=== PATIENT | female | born 1990 | race American Indian/Alaskan Native ===

== ENCOUNTER 2021-07-30 07:51 | Day surgery (SDC) | payer MEDICAID ==
[~2021-07-30 07:51] MED LIST: ceFAZolin/Water 2 GM/20 ML 2 GM/20 ML SYRINGE IV NR
[2021-07-30] MEDS ORDERED: SODIUM CHLORIDE 0.9% 1000 ML 1,000 ML ONE (08:51)
[2021-07-30 09:14] LABS: Hematocrit 32.8 % (30.3-42.9); Hemoglobin 10.5 gm/dl (10.1-14.3); Mean Corpuscular HGB Conc 32 % (30-34); Mean Corpuscular Volume 84 fl (79-97); Platelet Count 222 K/mm3 (140-440); Red Cell Distribution Width 16.4 % (13.2-15.2)
[2021-07-30 09:26] LABS: Calcium 8.7 mg/dL (8.4-10.2)
[2021-07-30] MEDS ORDERED: ONDANSETRON 4 MG/2 ML INJ IV PRN (09:27)
[2021-07-30] MEDS ORDERED: HYDROmorphone 1 MG/1 ML INJ IV PRN ×2 (09:27)
--- NOTE | 2021-07-30 09:28 | Anesthesia Day of Surgery ---
Anesthesia Day of Surgery - Day of Surgery Patient Examined: Yes Patient H&P Reviewed: Yes Patient is NPO: Yes Beta Blockers: Yes
--- NOTE | 2021-07-30 09:30 | Anesthesia Consultation ---
Anesthesia Consult and Med Hx Date of service: 07/30/21 - Airway Anesthetic Teeth Evaluation: Good ROM Head & Neck: Adequate Mental/Hyoid Distance: Adequate Mallampati Class: Class III Intubation Access Assessment: Possibly Difficult - Pre-Operative Health Status ASA Pre-Surgery Classification: ASA3 Proposed Anesthetic Plan: General - Pulmonary Hx Smoking: No Hx Asthma: Yes (USES INHALER NEEDED) Hx Sleep Apnea: No - Cardiovascular System Hx Hypertension: Yes (CHF Mar 2019) Hx Coronary Artery Disease: No (Had heart cath last year-pt states it was ok) - Central Nervous System Hx Psychiatric Problems: No - Gastrointestinal Hx Gastroesophageal Reflux Disease: Yes (Occasional) - Endocrine Hx Renal Disease: Yes (Last HD yesterday) Hx End Stage Renal Disease: Yes - Hematic Hx Anemia: Yes Hx Sickle Cell Disease: No - Other Systems Hx Alcohol Use: Yes (SOCIALLY) Hx Substance Use: No Hx Cancer: No Hx Obesity: Yes
[2021-07-30] MEDS ORDERED: MIDAZOLAM 2 MG/2 ML INJ IV NR (10:00)
[2021-07-30] MEDS ORDERED: SODIUM CHLORIDE 0.9% 1000 ML 1,000 ML IV SCH (10:00)
[2021-07-30] MEDS ORDERED: HEPARIN 10,000 UNITS/10 ML VIAL ONE (10:03)
[2021-07-30] MEDS ORDERED: rifAMPin 600 MG VIAL ONE (10:03)
[2021-07-30] MEDS ORDERED: BUPIVACAINE/PF (0.5%) 5 MG/1 ML 30 ML VIAL INFILTRATI ONE ×3 (10:03→10:41)
[2021-07-30] MEDS ORDERED: LIDOCAINE (1%) 10 MG/1 ML VIAL 20 ML MDV ONE (10:03)
[2021-07-30] MEDS ORDERED: SODIUM CHLORIDE 0.9% 250ML 0 ML ONE (10:03)
[2021-07-30] MEDS ORDERED: SODIUM CHLORIDE 0.9% 500 ML 500 ML ONE (10:04)
[2021-07-30] MEDS ORDERED: HYDROmorphone 1 MG/1 ML INJ ONE (10:08)
[2021-07-30] MEDS ORDERED: propofoL 200 MG/20 ML VIAL IV ONE (10:08)
[2021-07-30] MEDS ORDERED: LIDOCAINE MPF (2%) 20 MG/1 ML VIAL 5 ML ONE (10:09)
[2021-07-30] MEDS ORDERED: SODIUM CHLORIDE 0.9% 500 ML IVPB IV ONE (10:41)
[2021-07-30] MEDS ORDERED: SODIUM CHLORIDE 0.9% IRR 1,500 ML BOTTLE IR ONE (10:41)
[2021-07-30] MEDS ORDERED: HEPARIN 10,000 UNITS/10 ML VIAL IV ONE (10:41)
[2021-07-30] MEDS ORDERED: ePHEDrine SULFATE 50 MG/1 ML INJ ONE (11:01)
[2021-07-30] MEDS ORDERED: ONDANSETRON 4 MG/2 ML INJ ONE (11:33)
--- NOTE | 2021-07-30 11:45 | Short Stay Summary ---
Short Stay Documentation Date of service: 07/30/21 - Allergies and Medications Current Medications: Allergies No Known Allergies Allergy (Verified 07/22/21 15:33) Home Medications Medication Instructions Recorded Confirmed Last Taken Type Furosemide [Lasix] 40 mg PO BID 07/24/21 07/24/21 Unknown History Isosorbide Dinitrate [Isordil] 20 mg PO TID 07/24/21 07/24/21 Unknown History NIFEdipine [Adalat cc] 90 mg PO DAILY 07/24/21 07/24/21 Unknown History carvediloL [Coreg] 12.5 mg PO DAILY 07/24/21 07/24/21 Unknown History hydrALAZINE [Apresoline TAB] 100 mg PO TID 07/24/21 07/24/21 Unknown History Active Medications Hydromorphone HCl (Hydromorphone 1 Mg/1 Ml Inj) 0.25 mg IV Q10MIN PRN PRN Reason: Pain, Moderate (4-6) Stop: 07/30/21 20:00 Hydromorphone HCl (Hydromorphone 1 Mg/1 Ml Inj) 0.5 mg IV Q10MIN PRN PRN Reason: Pain , Severe (7-10) Stop: 07/30/21 20:00 Cefazolin Sodium (Ancef/Sterile Water 2 Gm/20 Ml) 2 gm in 20 mls @ 80 mls/hr IV PREOP NR; Protocol Stop: 07/30/21 23:00 Sodium Chloride (Nacl 0.9% 1000 Ml) 1,000 mls @ 42 mls/hr IV DIRECT GAURANG Last Admin: 07/30/21 08:50 Dose: 42 mls/hr Midazolam HCl (Midazolam 2 Mg/2 Ml Inj) 2 mg IV PREOP NR Stop: 07/30/21 23:59 Last Admin: 07/30/21 09:59 Dose: 2 mg Ondansetron HCl (Ondansetron 4 Mg/2 Ml Inj) 4 mg IV ONCE PRN PRN Reason: Nausea And Vomiting Stop: 07/30/21 12:00 - Brief post op/procedure progress note Date of procedure: 07/30/21 Pre-op diagnosis: End-Stage Renal Disease Post-op diagnosis: same Procedure: Creation of Left Peña Arteriovenous Fistula Anesthesia: GETA Surgeon: RENNY CARMONA Estimated blood loss: 50-100ml Pathology: none Condition: stable - Disposition Condition at discharge: Good Short Stay Discharge Plan Activity: other (No heavy lifting with left arm for 2 weeks. Use stress ball with left hand as often as possible.) Wound: open to air, keep clean and dry, other (Okay to wash the left arm incision with soap and water but do not soak in water for 2 weeks.) Follow up with: RENNY CARMONA MD [Staff Physician] - 14 Days Prescriptions: HYDROcodone/APAP 7.5-325 [[place] 7.5/325] 1 each PO Q6HR PRN #30 tablet PRN Reason: Pain
--- NOTE | 2021-07-30 11:46 | Operative Report ---
Operative Report Operative Report: Date of procedure: 07/30/2021 Pre-operative diagnosis: End-Stage Renal Disease Post-operative diagnosis: End-Stage Renal Disease Procedure(s): Creation of Left Peña Fistula Surgeon: Damon Ho MD Insurance Processing Clerk: None Anesthesia: Regional/MAC EBL: Minimal Counts: Correct Complications: None Condition: Stable Findings: Successful creation of left arm AV fistula with palpable thrill at the completion of the case. Specimen: None Indication: The patient is a 31-year-old female with history of end-stage renal disease who is currently on hemodialysis through a right internal jugular permacath. She is in need of long-term dialysis access and was found to be a suitable candidate for creation of a left arm arteriovenous fistula. She was given the risk, benefits, and alternative procedures and consented to the procedure. Description of Procedure: The patient was brought to the operating room and laid in supine position. Once a timeout was performed general endotracheal anesthesia was achieved. The patient's left arm was then prepped and draped in normal sterile fashion. A longitudinal incision was then created on the distal wrist, centered between the cephalic vein and the radial artery. The dissection was carried down to the radial artery using sharp dissection and the radial artery was dissected circumferentially and controlled with vessel loops. The cephalic vein was then dissected circumferentially, ligating side branches with 3-0 silk ties and dividing them. The cephalic vein was then divided distally transpose to the radial artery. A 3 Josue was then advanced through the cephalic vein proximally to ensure patency. The vein was then flushed with heparinized saline and control of the bulldog clamp. The patient was systemically heparinized with 3000 units of heparin IV and the radial artery clamped with DeBakey clamps. An arteriotomy was then created using an 11 blade and Perkins scissors. An end-to-side anastomosis was created between the cephalic vein and the radial artery using a single 6-0 Prolene in running fashion. Prior to completing the anastomosis I flashed the artery both retrograde and antegrade and advanced a 3 Josue into the proximal portion of the artery to break the spasm. I then completed the anastomosis and removed all clamps allowing flow into the fistula which had a palpable thrill. Hemostasis within the wound was achieved with a combination of manual pressure and Quick Clot. Once hemostasis was achieved the wounds were closed in 2 layers using a 3-0 Vicryl in running fashion in the deep dermal layers, 4-0 Monocryl in a running fashion the subcuticular layer, and Dermabond as a dressing. The patient tolerated the procedure well. All sponge, needle, and instrument counts were correct. The patient was taken to the recovery area in stable condition.
[2021-07-30] MEDS ORDERED: HYDROcodone/ACETAMINOPHEN 7.5-325MG TAB PO PRN (12:00)
[2021-07-30 12:31] VITALS: BP 132/77
--- NOTE | 2021-07-30 14:16 | Post Anesthesia Evaluation ---
- Post Anesthesia Evaluation Patient Participated: Yes Airway Patent: Yes Stable Respiratory Function: Yes Nausea/Vomiting: No Temp > 96.8F: Yes Pain Manageable: Yes Adequeate Hydration: Yes Anesthesia Complications: Yes Block Receding Appropriately: Not Applicable Patient on Ventilator: No
== END 2021-07-30 13:10 | disposition home or self-care (01) ==
LOC: OR 07:51
PROVIDERS: ATTEND Surgery Vascular Surgery
DX: I13.2 Hypertensive heart and chronic kidney disease with heart failure and with stage 5 chronic kidney disease, or end stage renal disease (principal); I50.9 Heart failure, unspecified; N18.6 End stage renal disease; G43.909 Migraine, unspecified, not intractable, without status migrainosus; E78.00 Pure hypercholesterolemia, unspecified; J45.909 Unspecified asthma, uncomplicated; K21.9 Gastro-esophageal reflux disease without esophagitis; E66.9 Obesity, unspecified; D64.9 Anemia, unspecified; Z83.3 Family history of diabetes mellitus; Z79.899 Other long term (current) drug therapy; Z68.35 Body mass index [BMI] 35.0-35.9, adult; Z98.890 Other specified postprocedural states; Z72.89 Other problems related to lifestyle; Z82.49 Family history of ischemic heart disease and other diseases of the circulatory system
CPT/HCPCS: 36415; 36821; 80048; 85027; C1757; J0690; J1170; J1644; J2250; J2405; J2704; J3490; J7030; J7040; J7050